=== PATIENT | female | born 1955 | race African-American/Black ===

== ENCOUNTER 2022-07-21 12:27 | Inpatient (IN) | payer OTHER ==
[2022-07-21 13:17] VITALS: BMI 25.2
[2022-07-21] MEDS ORDERED: MAG HYDROX/AL HYDROX/SIMETH 30 ML UNIT-DOSE CUP PO PRN (14:42)
[2022-07-21] MEDS ORDERED: ACETAMINOPHEN 325 MG TABLET (FP) PO PRN ×2 (14:42)
[2022-07-21] MEDS ORDERED: MAGNESIUM HYDROX 2400MG/30ML ORAL SUSPENSION 30 ML CUP PO PRN (14:42)
[2022-07-21] MEDS ORDERED: BISMUTH SUBSALICYLATE 524 MG/30 ML PO PRN (14:42)
[2022-07-21] MEDS ORDERED: IBUPROFEN 400 MG TABLET (FP) PO PRN (14:42)
[2022-07-21] MEDS ORDERED: NALOXONE HCL (KLOXXADO) 8 MG SPRAY NS PRN (14:42)
[2022-07-21] MEDS ORDERED: METHOCARBAMOL 500 MG TABLET PO PRN (14:42)
[2022-07-21] MEDS ORDERED: DICYCLOMINE HCL 10 MG CAPSULE PO PRN (14:42)
[2022-07-21] MEDS ORDERED: ONDANSETRON *ODT* 4 MG TABLET SL PRN (14:42)
[2022-07-21] MEDS ORDERED: BENZOCAINE/MENTHOL (CHLORASEPTIC ) LOZENGE MM PRN (14:42)
[2022-07-21] MEDS ORDERED: LOPERAMIDE HCL 2 MG CAPSULE PO PRN (14:42)
[2022-07-21] MEDS ORDERED: MAGNESIUM CITRATE 300 ML BOTTLE PO PRN (14:42)
[2022-07-21] MEDS ORDERED: ALBUTEROL SO4 HFA INHALER IH PRN (14:45)
[2022-07-21] MEDS ORDERED: INSULIN SLIDING SCALE (NOVOLOG) 1 VIAL SQ SCH (16:30)
[2022-07-21] MEDS: GABAPENTIN 400 MG CAPSULE PO SCH ×2 (17:49→22:26)
[2022-07-21] MEDS: NICOTINE 21 MG/24 HOURS TOPICAL PATCH TD SCH (18:11)
[2022-07-21] MEDS: traZODone HCL 50 MG TABLET (FP) PO SCH (22:26)
[2022-07-21] MEDS: THIAMINE HCL 100 MG TABLET (FP) PO SCH (22:26)
[2022-07-21] MEDS: ATORVASTATIN CA 80 MG TABLET (FP) PO SCH (22:26)
[2022-07-21] MEDS: metFORMIN HCL 500 MG TABLET (FP) PO SCH (22:26)
[2022-07-21] MEDS: INSULIN (LEVEMIR) 100 UNITS/ML UNITS SQ SCH (22:27)
[2022-07-21] MEDS: MELATONIN 5 MG TABLETS PO SCH (22:28)
[2022-07-21] MEDS: BUDESONIDE/FORMETEROL FUMARATE 160/4.5 mcg INHALER IH SCH (22:29)
[2022-07-22] MEDS: GABAPENTIN 400 MG CAPSULE PO SCH ×3 (06:36→22:28)
[2022-07-22] MEDS: INSULIN SLIDING SCALE (NOVOLOG) 1 VIAL SQ SCH ×3 (07:04→18:18)
[2022-07-22] MEDS ORDERED: METHOCARBAMOL 500 MG TABLET PO PRN (08:37)
[2022-07-22] MEDS ORDERED: PATIENT'S OWN MEDICATION (NON-FORMULARY) (Linagliptin [Tradjenta] 5 MG Tablet) PO SCH (10:00)
[2022-07-22] MEDS: BICTEGRAV/EMTRICIT/TENOFOV (BIKTARVY) 50-200-25 MG TABLET PO SCH (10:30)
[2022-07-22] MEDS: ASPIRIN COATED 81 MG TABLET.EC PO SCH (10:30)
[2022-07-22] MEDS: DULoxetine HCL 60 MG CAPSULE.DR PO SCH (10:30)
[2022-07-22] MEDS: metFORMIN HCL 500 MG TABLET (FP) PO SCH ×2 (10:30→22:28)
[2022-07-22] MEDS: BUDESONIDE/FORMETEROL FUMARATE 160/4.5 mcg INHALER IH SCH ×2 (10:30→22:30)
[2022-07-22] MEDS: PRENATAL VITAMINS W/ FOLIC ACID TABLET (FP) PO SCH (10:30)
[2022-07-22] MEDS: LISINOPRIL 20 MG TABLET PO SCH (10:30)
[2022-07-22] MEDS: NICOTINE 21 MG/24 HOURS TOPICAL PATCH TD SCH (10:31)
[2022-07-22 12:24] LABS: HEMATOCRIT 40.1 % (32.4-45.2); HEMOGLOBIN 12.8 GM/dL (10.7-15.3); MCH 31.7 pg (25.7-33.7); MCHC 31.9 g/dl (32.0-36.0); MEAN CELL VOLUME 99.1 fl (80-96); MEAN PLT VOLUME 9.6 fl (7.5-11.1); PLATELET COUNT 193 10^3/uL (134-434); RBC 4.04 M/mm3 (3.60-5.2); RDW 13.8 % (11.6-15.6); WHITE BLOOD COUNT 6.8 K/mm3 (4.0-10.0)
[2022-07-22 12:49] LABS: ALBUMIN 3.7 g/dl (3.4-5.0); BLOOD UREA NITROGEN 28.7 mg/dL (7-18); CALCIUM 8.6 mg/dL (8.5-10.1); CREATININE 1.3 mg/dL (0.55-1.3)
[2022-07-22 12:51] LABS: BILIRUBIN,TOTAL 0.4 mg/dL (0.2-1); TOT PROT 6.8 g/dl (6.4-8.2)
[2022-07-22] MEDS ORDERED: hydrOXYzine PAMOATE 25 MG CAPSULE (FP) PO PRN (15:32)
[2022-07-22] MEDS: THIAMINE HCL 100 MG TABLET (FP) PO SCH (22:28)
[2022-07-22] MEDS: ATORVASTATIN CA 80 MG TABLET (FP) PO SCH (22:28)
[2022-07-22] MEDS: MELATONIN 5 MG TABLETS PO SCH (22:28)
[2022-07-22] MEDS: traZODone HCL 50 MG TABLET (FP) PO SCH (22:29)
[2022-07-22] MEDS: INSULIN (LEVEMIR) 100 UNITS/ML UNITS SQ SCH (22:31)
[2022-07-23] MEDS: GABAPENTIN 400 MG CAPSULE PO SCH (05:46)
[2022-07-23 06:21] VITALS: TEMP 97.1
[2022-07-23] MEDS: INSULIN SLIDING SCALE (NOVOLOG) 1 VIAL SQ SCH (06:45)
[2022-07-23 09:29] VITALS: BP 141/67; PULSE 73; RESP 16
[2022-07-23] MEDS: BUDESONIDE/FORMETEROL FUMARATE 160/4.5 mcg INHALER IH SCH (09:35)
[2022-07-23] MEDS: ASPIRIN COATED 81 MG TABLET.EC PO SCH (09:35)
[2022-07-23] MEDS: LISINOPRIL 20 MG TABLET PO SCH (09:35)
[2022-07-23] MEDS: DULoxetine HCL 60 MG CAPSULE.DR PO SCH (09:35)
[2022-07-23] MEDS: BICTEGRAV/EMTRICIT/TENOFOV (BIKTARVY) 50-200-25 MG TABLET PO SCH (09:35)
[2022-07-23] MEDS: metFORMIN HCL 500 MG TABLET (FP) PO SCH (09:37)
[2022-07-23] MEDS: NICOTINE 21 MG/24 HOURS TOPICAL PATCH TD SCH (09:37)
[2022-07-23] MEDS: PRENATAL VITAMINS W/ FOLIC ACID TABLET (FP) PO SCH (09:37)
== END 2022-07-23 09:42 | disposition home or self-care (01) | DRG 897 ==
LOC: YASAS 12:27 → Y3N 14:52 → UNDOADMIN 14:52
PROVIDERS: ADMIT Allergy & Immunology; ATTEND Surgery
PROC: HZ2ZZZZ Detoxification Services for Substance Abuse Treatment (ICD-10-PCS; principal; 2022-07-21)
DX: F10.230 Alcohol dependence with withdrawal, uncomplicated (principal); I69.854 Hemiplegia and hemiparesis following other cerebrovascular disease affecting left non-dominant side; F17.210 Nicotine dependence, cigarettes, uncomplicated; Z21 Asymptomatic human immunodeficiency virus [HIV] infection status; I10 Essential (primary) hypertension; E78.5 Hyperlipidemia, unspecified; E11.42 Type 2 diabetes mellitus with diabetic polyneuropathy; Z79.4 Long term (current) use of insulin; J44.9 Chronic obstructive pulmonary disease, unspecified; M54.50 Low back pain, unspecified; G89.29 Other chronic pain; H91.93 Unspecified hearing loss, bilateral
CPT/HCPCS: 36415; 80053; 82962; 85027; 86780; 93005; 93010; Q0162